=== PATIENT | male | born 1995 | race Caucasian/White ===

== ENCOUNTER 2016-10-18 16:08 | Emergency (ER) | payer BC ==
[~2016-10-18] VITALS: Ht 185.4 cm; Wt 79.4 kg
[2016-10-18 16:20] VITALS: BP 135/92
[2016-10-18 17:15] LABS: BILIRUBIN,URINE NEG (NEG); CLARITY,URINE CLEAR; COLOR,URINE YELLOW; GLUCOSE,URINE NEG (NEG)
[2016-10-18 17:16] LABS: BACTERIA,URINE 0 /HPF (0-FEW); NITRITE,URINE NEG (NEG); RBC,URINE 0 /HPF (0-2); UROBILINOGEN,URINE 0.2 mg/dL (0.2 mg/dL); WBC,URINE 0 /HPF (0-4)
--- NOTE | 2016-10-18 17:18 | PHYS DOC ---
Past History Past Medical History: Other Past Surgical History: No Surgical History Alcohol Use: None Drug Use: None Adult General Chief Complaint Chief Complaint: TESTICULAR PAIN OR INJURY HPI HPI Patient is a 21-year-old male brought to the ED by mother with the complaint of groin/testicular pain. Patient tells me that he was at work about 1545. He developed a discomfort "right above the pubic hair" in his lower abdomen. He thought he needed to urinate so he went to the bathroom. The pain was not improved or changed when he urinated. After he urinated, he pulled up his pants and then felt a pain that was "shooting" in the left groin area to his left testicle. The pain is now gone. It is somewhat positional. He denies burning with urination. Denies fever, denies nausea or vomiting. He was feeling well before this happened. However, the patient does mention that he has had some of the left suprapubic discomfort off and on for some time now. It is described as "shooting" and is very short lived when it occurs. He had been thinking he might need to have it checked out by his primary care doctor. Patient did have a history that his right testicle was swollen after a traumatic injury. He did have evaluation and ultrasound for that a couple of years ago. That has not been bothering him. He has not had a previous incident like this before. Mom states he had a kidney infection about age 15. [address] Benavidez Review of Systems Review of Systems Constitutional: Denies fever or chills [] Respiratory: Denies cough or shortness of breath [] GI: Denies other abdominal pain, nausea, vomiting, or diarrhea [] : As in history of present illness Allergies Allergies Allergies Coded Allergies Type Severity Reaction Last Updated Verified No Known Drug Allergies 10/18/16 No Physical Exam Physical Exam Constitutional: Well developed, well nourished, no acute distress, non-toxic appearance. Alert, mentating normally, warm and dry. HENT: Normocephalic, atraumatic, bilateral external ears normal, nose normal. [ ] Eyes: conjunctiva normal, no discharge. [] Neck: Normal range of motion, no stridor. [] Abdomen: Bowel sounds normal, soft, nondistended, no tenderness, no masses, no pulsatile masses. The area where the patient had pain in the left suprapubic area is nontender to palpation without bulge, mass, or overlying skin change. The left inguinal area has minor amount of lymphadenopathy which is nontender. No palpable hernia. : Normal-appearing circumcised male. Right epididymis is mildly enlarged, suspect hydrocele. Right scrotum and testicle unremarkable. Left testicle is lower than the right. There is no pain with elevation of the left testicle. Left testicle is mildly sensitive to palpation but is not tender. Not swollen. Texture is normal. Left epididymis is not swollen or tender. Scrotum is without left-sided swelling or other abnormality. Skin: Warm, dry, no erythema, no rash. [] Extremities: No tenderness, no cyanosis, no clubbing, ROM intact, no edema. [] Neurologic: Alert and oriented X 3, normal motor function, normal sensory function, no focal deficits noted. [] Current Patient Data Vital Signs Vital Signs Date Time Temp Pulse Resp B/P (MAP) Pulse Ox O2 Delivery O2 Flow Rate FiO2 10/18/16 16:20 97.7 85 16 99 Room Air EKG EKG [] Radiology/Procedures Radiology/Procedures [] Course & Med Decision Making Course & Med Decision Making Pertinent Labs and Imaging studies reviewed. (See chart for details) 21-year-old male had an episode of left suprapubic discomfort with some radiation to the left testicle or epididymis that is now gone. The symptoms are nonspecific. It does not sound torsion related. Exam at this time is normal. There is no evidence whatsoever of testicular torsion, epididymitis, hernia, or other clinical entity. We will check a urinalysis. Urinalysis entirely negative. I reassured the patient and his mother that although we are not able to specifically identify the cause of his symptoms, I'm not finding any serious or treatable cause at this time and I feel he is stable for discharge. [] Dragon Disclaimer Dragon Disclaimer This chart was dictated in whole or in part using Voice Recognition software in a busy, high-work load, and often noisy Emergency Department environment. It may contain unintended and wholly unrecognized errors or omissions. Departure Departure: Impression: Primary Impression: Acute suprapubic pain Additional Impression: Left inguinal pain Disposition: HOME, SELF-CARE Condition: STABLE Referrals: VENKATESH BENAVIDEZ MD (PCP) Additional Instructions: Today, exam and urinalysis were normal. There is no evidence of a serious or emergency cause of the symptoms. Specifically, I do not believe you have testicular torsion, epididymitis, hernia. Urinalysis was negative so you do not have a urinary tract/kidney/bladder infection. If symptoms continue to bother you, see your primary care doctor for further evaluation. Problem Qualifiers SAUD TYSON MD Oct 18, 2016 17:18
== END 2016-10-18 17:37 | disposition home or self-care (01) ==
LOC: ER 16:08
DX: R10.32 Left lower quadrant pain (principal)
CPT/HCPCS: 81001; 99283